=== PATIENT | female | born 1960 | race American Indian/Alaskan Native ===

== ENCOUNTER 2023-07-02 18:04 | Inpatient (IN) | payer BC, OTHER, SELFPAY ==
[2023-07-02] MEDS ORDERED: fentaNYL 50 mcg/mL 1 mL Vial ONE ×2 (20:29→22:23)
[2023-07-02 21:02] LABS: #Basophils 0.1 thou/uL (0.0-0.2); #Eosinphils 0.2 thou/uL (0.0-0.7); #Monocytes 0.8 thou/uL (0.11-0.59); #Neutrophils 11.9 thou/uL (1.40-6.50); %Basophils 0.6 % (0.0-1.0); %Lymphocytes 8.7 % (21.0-51.0); %Monocytes 5.8 % (0.0-10.0); %Neutrophils 83.6 % (42.0-75.0); Hemoglobin 13.1 g/dL (12.0-16.0); Mean Corpuscular HGB CONC 34.5 g/dL (32.0-36.0); Mean Corpuscular Hemoglobin 31.9 pg (27.0-31.0); Mean Corpuscular Volume 92.5 fl (78.0-98.0); Platelet Count 205 10x3/uL (130-400); RBC Distribution Width 11.9 % (11.5-14.5); Red Blood Cell (RBC) Count 4.11 mill/uL (4.20-5.40); White Blood Cell (WBC) Count 14.3 10x3/uL (4.8-10.8)
[2023-07-02 21:15] LABS: INR-International Normal Ratio 1.1; PTT 29.4 sec (22.9-36.1); Prothrombin Time 13.9 sec (12.0-14.7)
[2023-07-02] MEDS ORDERED: Ondansetron PF 4 MG/2 ML Vial ONE (21:15)
[2023-07-02 21:28] LABS: ALT (SGPT) 19 U/L (8-55); AST (SGOT) 28 U/L (5-34); Albumin 4.3 g/dL (3.4-4.8); Alkaline Phosphatase 98 U/L (40-110); Anion Gap 14 mmol/L (10-20); BUN (Urea Nitrogen) 8 mg/dL (9.8-20.1); Calc. Creatinine Clearance 0 mL/min (70-130); Calcium 9.3 mg/dL (7.8-10.44); Carbon Dioxide 23 mmol/L (23-31); Chloride 102 mmol/L (98-107); Estimated GFR 86; Globulin 3.9 g/dL (2.4-3.5); Glucose 152 mg/dL (80-115); Magnesium 1.9 mg/dL (1.6-2.6); Potassium 4.2 mmol/L (3.5-5.1); Protein, Total 8.2 g/dL (5.8-8.1); Sodium 135 mmol/L (136-145)
[2023-07-02 21:30] LABS: Troponin I Less than 0.010 ng/mL (< 0.028)
[2023-07-02] MEDS ORDERED: PROPOFOL 20 ML ONE (21:46)
[2023-07-03] MEDS: Lactated Ringer's 1,000 ML IV SCH (01:00)
[2023-07-03] MEDS ORDERED: Ondansetron ODT 4 MG TAB SL PRN (01:00)
[2023-07-03] MEDS ORDERED: Ondansetron PF 4 MG/2 ML Vial IVP PRN (01:00)
[2023-07-03 01:13] VITALS: BMI 34.9
[2023-07-03] MEDS ORDERED: Acetaminophen 325 MG TAB PO PRN (07:05)
[2023-07-03] MEDS: Morphine 4 MG/ML VIAL SLOW IVP PRN (07:05)
[2023-07-03] MEDS ORDERED: traMADol HCl 50 MG TAB PO PRN (07:06)
[2023-07-03] MEDS: Morphine 2 MG/ML VIAL SLOW IVP PRN (12:16)
[2023-07-04] MEDS ORDERED: CEFAZOLIN 2 GM in Sodium Chloride 0.9% 100 ML IVPB SCH ×2 (08:00→19:02)
[2023-07-04] MEDS ORDERED: Ropivacaine 0.2% HCl/PF 20 ML ONE (12:40)
[2023-07-04] MEDS ORDERED: Ropivacaine 0.5% HCl/PF (150 MG/30 ML VIAL) ONE (12:40)
[2023-07-04] MEDS ORDERED: fentaNYL 50 mcg/mL 1 mL Vial ONE ×2 (12:41→14:39)
[2023-07-04] MEDS ORDERED: Midazolam HCl 2 mg/2 ml Vial ONE (12:41)
[2023-07-04] MEDS ORDERED: CEFAZOLIN 2 GM VIAL ONE (13:32)
[2023-07-04] MEDS ORDERED: Sodium Chloride 0.9% 100 ML ONE (13:32)
[2023-07-04] MEDS ORDERED: Lidocaine 2% PF 5 ML VIAL ONE (13:39)
[2023-07-04] MEDS ORDERED: PROPOFOL 20 ML ONE ×2 (13:39→16:29)
[2023-07-04] MEDS ORDERED: PHENYLEPHRINE-NS 100 MCG/ML 10 ML SYRINGE ONE (14:11)
[2023-07-04] MEDS ORDERED: Dexamethasone 4 mg/ml Vial ONE (15:19)
[2023-07-04] MEDS ORDERED: Ondansetron PF 4 MG/2 ML Vial ONE (15:19)
[2023-07-04] MEDS ORDERED: Dexmedetomidine 200 MCG/2 ML VIAL ONE (15:27)
[2023-07-04] MEDS ORDERED: fentaNYL PF 100 MCG/2 ML SYRINGE ONE (15:36)
[2023-07-04] MEDS ORDERED: Promethazine HCl 25 MG/ML VIAL IM PRN (16:44)
[2023-07-04] MEDS ORDERED: HYDROmorphone 2 MG/ML VIAL SLOW IVP PRN (16:44)
[2023-07-04] MEDS ORDERED: Ondansetron HCl/PF 4 MG/2 ML Vial IVP PRN (16:44)
[2023-07-04] MEDS: HYDROcodone/Acetaminophen 5/325 mg Tablet PO PRN (22:32)
[2023-07-05] MEDS ORDERED: HYDROcodone/Acetaminophen 10/325 mg Tablet PO PRN (11:43)
[2023-07-05] MEDS ORDERED: hydrALAZINE 20 MG/ML VIAL SLOW IVP PRN (16:44)
[2023-07-05 18:21] LABS: #Basophils 0.1 thou/uL (0.0-0.2); #Monocytes 1.3 thou/uL (0.11-0.59); #Neutrophils 9.6 thou/uL (1.40-6.50); %Basophils 0.5 % (0.0-1.0); %Eosinophils 0.3 % (0.0-10.0); %Lymphocytes 13.5 % (21.0-51.0); %Monocytes 10.3 % (0.0-10.0); %Neutrophils 74.9 % (42.0-75.0); Hematocrit 30.3 % (36.0-47.0); Hemoglobin 10.1 g/dL (12.0-16.0); Mean Corpuscular HGB CONC 33.3 g/dL (32.0-36.0); Mean Corpuscular Hemoglobin 31.1 pg (27.0-31.0); Mean Corpuscular Volume 93.2 fl (78.0-98.0); Mean Platelet Volume 10.5 fL (7.4-10.4); Platelet Count 209 10x3/uL (130-400); RBC Distribution Width 11.9 % (11.5-14.5); Red Blood Cell (RBC) Count 3.25 mill/uL (4.20-5.40); White Blood Cell (WBC) Count 12.8 10x3/uL (4.8-10.8)
[2023-07-05] MEDS: Enoxaparin 40 MG (0.4 mL) SYRINGE SC SCH (21:21)
[2023-07-06] MEDS: Milk Of Magnesia 30 ML UDCUP PO SCH (10:03)
[2023-07-06] MEDS: Polyethylene Glycol 3350 17 GM Packet PO SCH (10:03)
[2023-07-07 04:17] LABS: #Basophils 0.1 thou/uL (0.0-0.2); #Eosinphils 0.4 thou/uL (0.0-0.7); #Monocytes 1.2 thou/uL (0.11-0.59); #Neutrophils 7.6 thou/uL (1.40-6.50); %Basophils 0.6 % (0.0-1.0); %Eosinophils 3.3 % (0.0-10.0); %Lymphocytes 18.2 % (21.0-51.0); %Monocytes 10.3 % (0.0-10.0); %Neutrophils 66.7 % (42.0-75.0); Hematocrit 28.6 % (36.0-47.0); Hemoglobin 9.6 g/dL (12.0-16.0); Mean Corpuscular HGB CONC 33.6 g/dL (32.0-36.0); Mean Corpuscular Hemoglobin 31.7 pg (27.0-31.0); Mean Corpuscular Volume 94.4 fl (78.0-98.0); Platelet Count 237 10x3/uL (130-400); RBC Distribution Width 11.9 % (11.5-14.5); Red Blood Cell (RBC) Count 3.03 mill/uL (4.20-5.40); White Blood Cell (WBC) Count 11.3 10x3/uL (4.8-10.8)
[2023-07-07 04:44] LABS: Anion Gap 12 mmol/L (10-20); BUN (Urea Nitrogen) 8 mg/dL (9.8-20.1); Calc. Creatinine Clearance 123 mL/min (70-130); Calcium 8.5 mg/dL (7.8-10.44); Carbon Dioxide 28 mmol/L (23-31); Chloride 100 mmol/L (98-107); Estimated GFR 99; Glucose 132 mg/dL (80-115); Potassium 3.9 mmol/L (3.5-5.1); Sodium 136 mmol/L (136-145)
[2023-07-08] MEDS ORDERED: CEFAZOLIN 2 GM in Sodium Chloride 0.9% 100 ML IVPB SCH (07:00)
[2023-07-08] MEDS: FLU VACC QS2023-24(6MOS UP)/PF 60 MCG/0.5 ML SYRINGE IM ONE (07:41)
[2023-07-08] MEDS: Acetaminophen 325 MG TAB PO SCH (12:17)
[2023-07-08] MEDS: traMADol HCl 50 MG TAB PO SCH (12:18)
[2023-07-08] MEDS: Senokot S 8.6-50 MG TAB PO SCH (22:07)
[2023-07-09 04:45] LABS: #Basophils 0.1 thou/uL (0.0-0.2); #Eosinphils 0.8 thou/uL (0.0-0.7); #Monocytes 0.9 thou/uL (0.11-0.59); #Neutrophils 7.7 thou/uL (1.40-6.50); %Basophils 0.6 % (0.0-1.0); %Eosinophils 6.7 % (0.0-10.0); %Lymphocytes 16.5 % (21.0-51.0); %Monocytes 8.1 % (0.0-10.0); %Neutrophils 66.8 % (42.0-75.0); Hematocrit 28.2 % (36.0-47.0); Hemoglobin 9.3 g/dL (12.0-16.0); Mean Corpuscular Hemoglobin 31.4 pg (27.0-31.0); Mean Corpuscular Volume 95.3 fl (78.0-98.0); Mean Platelet Volume 9.8 fL (7.4-10.4); Platelet Count 269 10x3/uL (130-400); RBC Distribution Width 11.9 % (11.5-14.5); Red Blood Cell (RBC) Count 2.96 mill/uL (4.20-5.40); White Blood Cell (WBC) Count 11.5 10x3/uL (4.8-10.8)
[2023-07-09] MEDS ORDERED: Vancomycin (BATCH) 1.5 GM in Premix 1 BAG IVPB SCH ×2 (06:30→21:00)
[2023-07-09] MEDS ORDERED: Vancomycin (BATCH) 1.5 GM/300 ML BAG ONE (07:46)
[2023-07-09] MEDS ORDERED: Sodium Chloride 0.9% 100 ML ONE ×3 (07:46→08:56)
[2023-07-09] MEDS ORDERED: Tranexamic Acid 1,000 MG/10 ML VIAL ONE (07:46)
[2023-07-09] MEDS ORDERED: Phenylephrine 10 MG/ML VIAL ONE ×2 (07:47)
[2023-07-09] MEDS ORDERED: Ropivacaine 0.2% HCl/PF 20 ML ONE (07:57)
[2023-07-09] MEDS ORDERED: Ropivacaine 0.5% HCl/PF (150 MG/30 ML VIAL) ONE (07:57)
[2023-07-09] MEDS ORDERED: Midazolam HCl 2 mg/2 ml Vial ONE (07:57)
[2023-07-09] MEDS ORDERED: fentaNYL 50 mcg/mL 1 mL Vial ONE (07:57)
[2023-07-09] MEDS ORDERED: traMADol HCl 50 MG TAB PO PRN ×2 (08:45)
[2023-07-09] MEDS ORDERED: Ropivacaine 0.2% 550 ML 550 ML NERVE BLCK SCH (08:45)
[2023-07-09] MEDS ORDERED: Promethazine HCl 25 MG/ML VIAL IM PRN ×2 (08:45→12:00)
[2023-07-09] MEDS ORDERED: Ondansetron PF 4 MG/2 ML Vial IVP PRN (08:45)
[2023-07-09] MEDS ORDERED: Zolpidem Tartrate 5 MG TAB PO PRN (08:45)
[2023-07-09] MEDS ORDERED: CEFAZOLIN 2 GM VIAL ONE (08:56)
[2023-07-09] MEDS ORDERED: Vancomycin 1.5 GM in Sodium Chloride 0.9% 250 ML 300 ML IVPB SCH (09:00)
[2023-07-09] MEDS ORDERED: PROPOFOL 20 ML ONE (09:15)
[2023-07-09] MEDS ORDERED: fentaNYL PF 100 MCG/2 ML SYRINGE ONE (09:15)
[2023-07-09] MEDS ORDERED: Rocuronium Bromide 10 MG/ML (10ML VIAL) ONE (09:16)
[2023-07-09] MEDS ORDERED: Ondansetron PF 4 MG/2 ML Vial ONE (09:16)
[2023-07-09] MEDS ORDERED: CEFAZOLIN 1 GM VIAL ONE (10:05)
[2023-07-09] MEDS: Polyethylene Glycol 3350 17 GM Packet PO SCH (10:25)
[2023-07-09] MEDS ORDERED: ePHEDrine Sulfate 50 MG/10 ML VIAL ONE (11:16)
[2023-07-09] MEDS ORDERED: SUGAMMADEX SODIUM 200 MG/2 ML VIAL ONE (11:36)
[2023-07-09] MEDS ORDERED: Ondansetron HCl/PF 4 MG/2 ML Vial IVP PRN (12:00)
[2023-07-09] MEDS: Ketorolac Tromethamine 30 MG (1 mL) VIAL IVP SCH (13:51)
[2023-07-09] MEDS: CEFAZOLIN 2 GM in Sodium Chloride 0.9% 100 ML IVPB SCH (18:13)
[2023-07-09] MEDS: HYDROcodone/Acetaminophen 10/325 mg Tablet PO PRN (18:14)
[2023-07-09] MEDS: Tranexamic Acid 1,000 MG in Sodium Chloride 0.9% 250 ML 250 ML IVPB SCH (20:25)
[2023-07-09] MEDS: Cyclobenzaprine 10 MG TAB PO PRN (20:34)
[2023-07-09] MEDS: fentaNYL 50 mcg/mL 1 mL Vial SLOW IVP PRN (20:34)
[2023-07-10] MEDS: HYDROcodone/Acetaminophen 10/325 mg Tablet PO PRN (02:03)
[2023-07-10 07:58] LABS: #Basophils 0.1 thou/uL (0.0-0.2); #Eosinphils 0.6 thou/uL (0.0-0.7); #Neutrophils 6.2 thou/uL (1.40-6.50); %Basophils 0.5 % (0.0-1.0); %Eosinophils 6.8 % (0.0-10.0); %Lymphocytes 14.8 % (21.0-51.0); %Monocytes 10.4 % (0.0-10.0); %Neutrophils 66.3 % (42.0-75.0); Hematocrit 26.4 % (36.0-47.0); Hemoglobin 8.5 g/dL (12.0-16.0); Mean Corpuscular HGB CONC 32.2 g/dL (32.0-36.0); Mean Corpuscular Volume 96.4 fl (78.0-98.0); Platelet Count 278 10x3/uL (130-400); RBC Distribution Width 12.4 % (11.5-14.5); Red Blood Cell (RBC) Count 2.74 mill/uL (4.20-5.40); White Blood Cell (WBC) Count 9.4 10x3/uL (4.8-10.8)
[2023-07-10] MEDS ORDERED: Ibuprofen 200 MG TAB PO PRN (10:40)
[2023-07-11] MEDS: Ibuprofen 200 MG TAB PO SCH (09:40)
[2023-07-11] MEDS: Acetaminophen/Codeine 30-300mg Tablet PO SCH (11:19)
[2023-07-11] MEDS: Acetaminophen 325 MG TAB PO SCH (11:20)
[2023-07-11] MEDS ORDERED: Acetaminophen/Codeine 30-300mg Tablet PO SCH (12:00)
[2023-07-11] MEDS: Cyclobenzaprine 10 MG TAB PO PRN (15:39)
[2023-07-11 17:22] VITALS: BP 128/82; TEMP 97.9
== END 2023-07-11 17:30 | disposition home or self-care (01) | DRG 483 ==
LOC: ERS 18:04 → SURG B 22:09
PROVIDERS: ADMIT Surgery; ATTEND Surgery
PROC: 0PSJ04Z Reposition Left Radius with Internal Fixation Device, Open Approach (ICD-10-PCS; principal; 2023-07-04)
PROC: 0PSL04Z Reposition Left Ulna with Internal Fixation Device, Open Approach (ICD-10-PCS; 2023-07-04)
PROC: 0RRJ00Z Replacement of Right Shoulder Joint with Reverse Ball and Socket Synthetic Substitute, Open Approach (ICD-10-PCS; 2023-07-09)
PROC: 0LS30ZZ Reposition Right Upper Arm Tendon, Open Approach (ICD-10-PCS; 2023-07-09)
DX: S52.022A Displaced fracture of olecranon process without intraarticular extension of left ulna, initial encounter for closed fracture (principal); S42.291A Other displaced fracture of upper end of right humerus, initial encounter for closed fracture; S52.042A Displaced fracture of coronoid process of left ulna, initial encounter for closed fracture; S52.122A Displaced fracture of head of left radius, initial encounter for closed fracture; S52.132A Displaced fracture of neck of left radius, initial encounter for closed fracture; J45.909 Unspecified asthma, uncomplicated; I10 Essential (primary) hypertension; G47.30 Sleep apnea, unspecified; W18.30XA Fall on same level, unspecified, initial encounter
CPT/HCPCS: 24600; 36415; 71045; 80048; 80053; 83735; 83880; 84443; 84484; 85025; 85610; 85730; 86850; 86900; 86901; 93005; 96361; 96374; 99152; 99153; A4306; C1713; C1776; C1874; J0690; J1100; J1650; J1885; J2001; J2250; J2270; J2272; J2371; J2405; J2704; J2795; J3010; J3370; J3490; J7120